=== PATIENT | male | born 1945 | race Caucasian/White ===

== ENCOUNTER 2018-06-04 21:02 | Emergency (ER) | payer MEDICARE, OTHER ==
[2018-06-05 00:27] LABS: ADD MAN DIFF? NO
[2018-06-05 00:45] LABS: PARTIAL THROMBOPLASTIN TIME 37.8 Sec (25.0-35.0)
[2018-06-05 00:46] LABS: INR 1.02; PROTIME 13.5 Sec (11.9-14.9); PT RATIO 1.1
[2018-06-05 00:49] LABS: ALANINE AMINOTRANSFERASE 30 IU/L (13-69); ALBUMIN 4.1 g/dl (3.3-4.9); ALBUMIN/GLOBULIN RATIO 1.32; ALKALINE PHOSPHATASE 69 IU/L (42-121); ANION GAP 14 (8-16); ASPARTATE AMINO TRANSFERASE 20 IU/L (15-46); BASOPHIL # 0.1 10^3/ul (0.0-0.1); BASOPHILS % 0.9 % (0.0-2.0); BILIRUBIN,INDIRECT 0.5 mg/dl (0-1.1); BILIRUBIN,TOTAL 0.5 mg/dl (0.2-1.3); BLOOD UREA NITROGEN 23 mg/dl (7-20); CALCIUM 9.2 mg/dl (8.4-10.2); CARBON DIOXIDE 34 mmol/L (21-31); CHLORIDE 101 mmol/L (97-110); CREATININE 1.28 mg/dl (0.61-1.24); EOSINOPHILS # 0.3 10^3/ul (0.0-0.5); EOSINOPHILS % 4.4 % (0.0-7.0); GLUCOSE 104 mg/dl (70-220); HEMATOCRIT 46.1 % (42.0-52.0); HEMOGLOBIN 14.7 g/dl (14.0-18.0); LYMPHOCYTES # 1.7 10^3/ul (0.8-2.9); LYMPHOCYTES % 22.2 % (15.0-51.0); MEAN CORPUSCULAR HEMOGLOBIN 28.4 pg (29.0-33.0); MEAN CORPUSCULAR HGB CONC 31.9 g/dl (32.0-37.0); MEAN CORPUSCULAR VOLUME 89.2 fl (82.0-101.0); MEAN PLATELET VOLUME 10.6 fl (7.4-10.4); MONOCYTE # 0.7 10^3/ul (0.3-0.9); MONOCYTES % 9.7 % (0.0-11.0); NEUTROPHIL # 4.6 10^3/ul (1.6-7.5); NEUTROPHILS % 62.3 % (39.0-77.0); PLATELET COUNT 231 10^3/UL (140-415); RED BLOOD COUNT 5.17 10^6/ul (4.70-6.10); RED CELL DISTRIBUTION WIDTH 12.9 % (11.5-14.5); SODIUM 145 mmol/L (135-144); TOTAL PROTEIN 7.2 g/dl (6.1-8.1)
[2018-06-05 00:49] LABS: WHITE BLOOD COUNT 7.4 10^3/ul (4.8-10.8)
[2018-06-05 01:00] LABS: B-TYPE NATRIURETIC PEPTIDE 492 PG/ML (0-125); TROPONIN-I 0.013 ng/ml (0.000-0.120)
[2018-06-05] MEDS: SOD CHLORIDE 0.9% 100 ML (01:33)
[2018-06-05] MEDS: IOHEXOL 300MG/ML 150 ML BTL (01:33)
[2018-06-05] MEDS: LABETALOL HCL 20MG INJ IV (06:05)
== END 2018-06-05 07:29 | disposition short-term general hospital (02) ==
LOC: E/R 06-05 07:29
DX: R06.00 Dyspnea, unspecified (principal)
CPT/HCPCS: 36415; 71045; 71275; 80053; 83880; 84484; 85025; 85610; 85730; 93005; 99285-25

== ENCOUNTER 2018-09-16 21:12 | Observation (INO) | payer MEDICARE, OTHER ==
[2018-09-16 21:56] LABS: ADD MAN DIFF? NO
[2018-09-16 22:04] LABS: WHITE BLOOD COUNT 6.7 10^3/ul (4.8-10.8)
[2018-09-16 22:04] LABS: BASOPHIL # 0.1 10^3/ul (0.0-0.1); BASOPHILS % 0.9 % (0.0-2.0); EOSINOPHILS # 0.3 10^3/ul (0.0-0.5); EOSINOPHILS % 5.1 % (0.0-7.0); HEMATOCRIT 45.1 % (42.0-52.0); HEMOGLOBIN 14.3 g/dl (14.0-18.0); LYMPHOCYTES # 1.6 10^3/ul (0.8-2.9); LYMPHOCYTES % 24.1 % (15.0-51.0); MEAN CORPUSCULAR HEMOGLOBIN 28.5 pg (29.0-33.0); MEAN CORPUSCULAR HGB CONC 31.7 g/dl (32.0-37.0); MEAN CORPUSCULAR VOLUME 89.8 fl (82.0-101.0); MEAN PLATELET VOLUME 10.4 fl (7.4-10.4); MONOCYTE # 0.6 10^3/ul (0.3-0.9); MONOCYTES % 8.3 % (0.0-11.0); NEUTROPHIL # 4.1 10^3/ul (1.6-7.5); NEUTROPHILS % 61.3 % (39.0-77.0); PLATELET COUNT 218 10^3/UL (140-415); RED BLOOD COUNT 5.02 10^6/ul (4.70-6.10); RED CELL DISTRIBUTION WIDTH 13.1 % (11.5-14.5)
[2018-09-16 22:27] LABS: ALANINE AMINOTRANSFERASE 23 IU/L (13-69); ALBUMIN 3.4 g/dl (3.3-4.9); ALBUMIN/GLOBULIN RATIO 0.97; ALKALINE PHOSPHATASE 74 IU/L (42-121); ASPARTATE AMINO TRANSFERASE 19 IU/L (15-46); BILIRUBIN,INDIRECT 0.4 mg/dl (0-1.1); BILIRUBIN,TOTAL 0.4 mg/dl (0.2-1.3); BLOOD UREA NITROGEN 18 mg/dl (7-20); CALCIUM 8.8 mg/dl (8.4-10.2); CARBON DIOXIDE 34 mmol/L (21-31); CHLORIDE 102 mmol/L (97-110); CREATININE 1.33 mg/dl (0.61-1.24); GLUCOSE 123 mg/dl (70-220); POTASSIUM 3.8 mmol/L (3.5-5.1); SODIUM 141 mmol/L (135-144); TOTAL PROTEIN 6.9 g/dl (6.1-8.1)
[2018-09-16 22:39] LABS: TROPONIN-I < 0.012 ng/ml (0.000-0.120)
[2018-09-17] MEDS: IODIXANOL LOCM 50 ML BTL (00:07)
[2018-09-17] MEDS: SOD CHLORIDE 0.9% 100 ML (00:08)
[2018-09-17] MEDS: IODIXANOL LOCM 100 ML BTL (00:08)
[2018-09-17] MEDS: HYDROCODONE/APAP (5/325) TAB PO ×2 (01:01→20:53)
[2018-09-17] MEDS ORDERED: NACL 0.9% 3 ML SYG IV (03:00)
[2018-09-17] MEDS ORDERED: hydrALAzine 20 MG INJ IV (03:00)
[2018-09-17] MEDS ORDERED: DOCUSATE SODIUM 100 MG CAP PO (03:00)
[2018-09-17] MEDS ORDERED: ONDANSETRON 4 MG INJ IV (03:00)
[2018-09-17 05:57] LABS: CREATINE KINASE 51 IU/L (23-200)
[2018-09-17 06:09] LABS: CK INDEX 1.1; CK-MB 0.55 ng/ml (0.0-2.4); TROPONIN-I < 0.012 ng/ml (0.000-0.120)
[2018-09-17] MEDS: PANTOPRAZOLE (EC) 40 MG TAB PO (06:31)
[2018-09-17] MEDS: FUROSEMIDE 40 MG TAB PO (06:31)
[2018-09-17] MEDS: HEPARIN 5,000 UNIT/0.5 ML VIAL SC (06:48)
[2018-09-17] MEDS ORDERED: NON-FORMULARY/PATIENT OWN MED (Clopidogrel Bisulfate* 75 MG) PO (09:00)
[2018-09-17] MEDS: ISOSORBIDE DINITRATE 10 MG TAB PO (09:04)
[2018-09-17] MEDS: LOSARTAN 50 MG TAB PO (09:04)
[2018-09-17] MEDS: CLOPIDOGREL 75 MG TAB PO (09:04)
[2018-09-17] MEDS: TAMSULOSIN (SR) 0.4 MG CAP PO ×2 (09:04→21:44)
[2018-09-17] MEDS: POTASSIUM CHLORIDE (SR) 10 MEQ TAB PO (09:04)
[2018-09-17] MEDS: METOPROLOL 50 MG TAB PO ×2 (09:04→21:00)
[2018-09-17 10:15] LABS: ANION GAP 5 (5-13)
[2018-09-17 10:52] LABS: CREATINE KINASE 40 IU/L (23-200)
[2018-09-17 11:03] LABS: CK-MB 0.38 ng/ml (0.0-2.4); TROPONIN-I < 0.012 ng/ml (0.000-0.120)
[2018-09-17] MEDS ORDERED: HEPARIN 5,000 UNIT/0.5 ML VIAL ×2 (13:25→21:26)
[2018-09-17] MEDS: ISOSORBIDE DINITRATE 20 MG TAB PO ×2 (13:29→21:44)
[2018-09-17] MEDS: HEPARIN SODIUM 5,000 UNIT/ML VIAL SC ×2 (13:32→21:50)
[2018-09-17] MEDS: AZITHROMYCIN 250 MG TAB PO (14:57)
[2018-09-17] MEDS ORDERED: NON-FORMULARY/PATIENT OWN MED (Rosuvastatin Calcium* (Crestor*) 10 MG) PO (21:00)
[2018-09-17] MEDS: ATORVASTATIN 40 MG TAB PO (21:44)
[2018-09-18] MEDS: ACETAMINOPHEN 325 MG TAB PO (00:27)
[2018-09-18] MEDS ORDERED: HEPARIN 5,000 UNIT/0.5 ML VIAL (06:32)
[2018-09-18] MEDS: PANTOPRAZOLE (EC) 40 MG TAB PO (06:36)
[2018-09-18] MEDS: PROMETHAZINE/CODEINE 5ML CUP PO (06:37)
[2018-09-18] MEDS: FUROSEMIDE 40 MG TAB PO (06:38)
[2018-09-18] MEDS: HEPARIN SODIUM 5,000 UNIT/ML VIAL SC (06:45)
[2018-09-18] MEDS: CLOPIDOGREL 75 MG TAB PO (09:21)
[2018-09-18] MEDS: POTASSIUM CHLORIDE (SR) 10 MEQ TAB PO (09:22)
[2018-09-18] MEDS: ISOSORBIDE DINITRATE 20 MG TAB PO (09:22)
[2018-09-18] MEDS: LOSARTAN 50 MG TAB PO (09:22)
[2018-09-18] MEDS: TAMSULOSIN (SR) 0.4 MG CAP PO (09:22)
== END 2018-09-18 12:37 | disposition home health service (06) ==
LOC: E/R 21:12 → 6WM 09-17 02:55
DX: I10 Essential (primary) hypertension (principal); R06.00 Dyspnea, unspecified; I25.10 Atherosclerotic heart disease of native coronary artery without angina pectoris; E78.5 Hyperlipidemia, unspecified; N40.0 Benign prostatic hyperplasia without lower urinary tract symptoms; J44.9 Chronic obstructive pulmonary disease, unspecified; Z95.1 Presence of aortocoronary bypass graft; Z85.118 Personal history of other malignant neoplasm of bronchus and lung
CPT/HCPCS: 36415; 71045; 71275; 80053; 82550; 82553; 84484; 85025; 90686; 93005; 99285-25; G0378

== ENCOUNTER 2019-03-02 07:00 | Day surgery (SDC) | payer MEDICARE, OTHER ==
[2019-03-02] MEDS: SOD CHLORIDE 0.9% 1,000 ML IV (07:38)
[2019-03-02] MEDS: MOXIFLOXACIN 0.5% 3 ML OPH RIGHT EYE (07:38)
[2019-03-02] MEDS: CYCLOPENTOLATE/PHENYLEPH 2 ML OPH RIGHT EYE (07:38)
[2019-03-02] MEDS: TROPICAMIDE 1% 15 ML OPH RIGHT EYE (07:39)
[2019-03-02] MEDS: DICLOFENAC 0.1% 2.5 ML OPH RIGHT EYE (07:39)
[2019-03-02] MEDS ORDERED: hydrALAzine 20 MG INJ ×2 (08:00→08:55)
[2019-03-02] MEDS: hydrALAzine 20 MG INJ IV (08:06)
[2019-03-02] MEDS ORDERED: FENTAnyl 50 MCG/ML VIAL IV (08:30)
[2019-03-02] MEDS ORDERED: DIPHENHYDRAMINE 50 MG INJ IV (08:30)
[2019-03-02] MEDS ORDERED: HYDROmorphONE 1 MG/5 ML IV SYRINGE IV ×2 (08:30)
[2019-03-02] MEDS ORDERED: OXYCODONE/ACETAMINOPHEN (5/325) TAB PO (08:30)
[2019-03-02] MEDS ORDERED: LABETALOL HCL 20MG INJ IV (08:30)
[2019-03-02] MEDS ORDERED: ONDANSETRON 4 MG INJ IV (08:30)
[2019-03-02] MEDS ORDERED: hydrALAzine 20 MG INJ IV (08:30)
[2019-03-02] MEDS ORDERED: FENTAnyl 50 MCG/ML VIAL (08:38)
[2019-03-02] MEDS ORDERED: MIDAZOLAM 1 MG/ML 2 ML INJ (08:38)
[2019-03-02] MEDS ORDERED: PROPOFOL 20 ML (08:55)
[2019-03-02] MEDS: CARBACHOL 0.01% 1.5 ML OPH INJ (09:02)
[2019-03-02] MEDS: DEXAMETHASONE 4 MG/ML 1 ML INJ (09:02)
[2019-03-02] MEDS: GENTAMICIN 80 MG INJ (09:02)
[2019-03-02] MEDS ORDERED: LIDOCAINE 4% (MPF) 5 ML INJ (09:33)
[2019-03-02] MEDS ORDERED: NA HYALURONATE/CHONDROITIN 0.5 ML SYG (09:33)
== END 2019-03-02 11:10 | disposition home or self-care (01) ==
LOC: SDS 07:00
DX: H25.041 Posterior subcapsular polar age-related cataract, right eye (principal); I11.0 Hypertensive heart disease with heart failure; I50.9 Heart failure, unspecified; I25.10 Atherosclerotic heart disease of native coronary artery without angina pectoris; J44.9 Chronic obstructive pulmonary disease, unspecified
CPT/HCPCS: 66984

== ENCOUNTER 2019-05-29 21:37 | Inpatient (IN) | payer MEDICARE, OTHER ==
[2019-05-29 22:03] LABS: AADO2 Arterial 47.5 mmHg (7.0-24.0); Allen Test ACCEPTAB; Arterial Base Excess 5.1 mmol/L (-3.0-3); Arterial Blood Gas Oxygen Sat 92.3 mmHG (95.0-100.0); Arterial COHb 1.3 % (0.0-3.0); Arterial Fraction of Oxyhgb 90.8 % (93.0-99.0); Arterial HCO3 33.4 mmol/L (22.0-26.0); Arterial MetHb 0.3 % (0.0-1.5); Arterial pCO2 65.4 mmhg (35-45); MODE NASAL CANNULA; Site Right Radial
[2019-05-29 22:13] LABS: ADD MAN DIFF? NO
[2019-05-29 22:15] LABS: WHITE BLOOD COUNT 10.9 10^3/ul (4.8-10.8)
[2019-05-29 22:15] LABS: BASOPHIL # 0.1 10^3/ul (0.0-0.1); BASOPHILS % 0.5 % (0.0-2.0); EOSINOPHILS # 0.2 10^3/ul (0.0-0.5); EOSINOPHILS % 1.7 % (0.0-7.0); HEMATOCRIT 46.8 % (42.0-52.0); HEMOGLOBIN 14.2 g/dl (14.0-18.0); LYMPHOCYTES # 1.9 10^3/ul (0.8-2.9); LYMPHOCYTES % 17.1 % (15.0-51.0); MEAN CORPUSCULAR HEMOGLOBIN 27.8 pg (29.0-33.0); MEAN CORPUSCULAR HGB CONC 30.3 g/dl (32.0-37.0); MEAN CORPUSCULAR VOLUME 91.6 fl (82.0-101.0); MEAN PLATELET VOLUME 10.9 fl (7.4-10.4); MONOCYTE # 0.9 10^3/ul (0.3-0.9); MONOCYTES % 7.8 % (0.0-11.0); NEUTROPHIL # 7.9 10^3/ul (1.6-7.5); NEUTROPHILS % 72.6 % (39.0-77.0); PLATELET COUNT 239 10^3/UL (140-415); RED BLOOD COUNT 5.11 10^6/ul (4.70-6.10); RED CELL DISTRIBUTION WIDTH 13.8 % (11.5-14.5)
[2019-05-29] MEDS: SODIUM CHLORIDE 0.9% 1L BAG IV* (22:17)
[2019-05-29] MEDS: CEFTRIAXONE 1 GM/50 ML (PMX) 50 ML IVPB (22:17)
[2019-05-29 22:22] LABS: INR 1.04; PROTIME 13.7 Sec (11.9-14.9); PT RATIO 1.1
[2019-05-29 22:23] LABS: ALANINE AMINOTRANSFERASE 45 IU/L (13-69); ALBUMIN 3.8 g/dl (3.3-4.9); ALBUMIN/GLOBULIN RATIO 1.08; ALKALINE PHOSPHATASE 76 IU/L (42-121); ANION GAP 7 (5-13); ASPARTATE AMINO TRANSFERASE 39 IU/L (15-46); BILIRUBIN,INDIRECT 0.6 mg/dl (0-1.1); BILIRUBIN,TOTAL 0.6 mg/dl (0.2-1.3); BLOOD UREA NITROGEN 27 mg/dl (7-20); CALCIUM 8.1 mg/dl (8.4-10.2); CARBON DIOXIDE 36 mmol/L (21-31); CHLORIDE 99 mmol/L (97-110); CREATININE 1.46 mg/dl (0.61-1.24); GLUCOSE 118 mg/dl (70-220); PARTIAL THROMBOPLASTIN TIME 39.9 Sec (23.0-35.0); POTASSIUM 4.1 mmol/L (3.5-5.1); SODIUM 142 mmol/L (135-144); TOTAL PROTEIN 7.3 g/dl (6.1-8.1)
[2019-05-29 22:37] LABS: TROPONIN-I 0.649 ng/ml (0.000-0.120)
[2019-05-29] MEDS: AZITHROMYCIN 500MG/NS (PMX) 250 ML IV (22:40)
[2019-05-29] MEDS: ASPIRIN 81 MG TAB PO (22:42)
[2019-05-29] MEDS: HYDROCODONE/APAP (10/325) TAB PO (23:04)
[2019-05-29] MEDS: ALBUTEROL 0.083% (NEB) 2.5 MG/3 ML AMP NEB (23:07)
[2019-05-29] MEDS: IPRATROPIUM (NEB) 0.5 MG/2.5 ML AMP NEB (23:07)
[2019-05-29] MEDS ORDERED: morphine 2 MG INJ IV (23:30)
[2019-05-29 23:45] LABS: B-TYPE NATRIURETIC PEPTIDE 2870 PG/ML (0-125)
[2019-05-30] MEDS ORDERED: ONDANSETRON 4 MG INJ IV
[2019-05-30 00:26] LABS: LACTIC ACID 0.7 mmol/L (0.5-2.0)
[2019-05-30] MEDS: ACETAMINOPHEN 325 MG TAB PO ×4 (00:29→21:51)
[2019-05-30] MEDS: ALBUTEROL/IPRATROPIUM (NEB) 3 ML AMP HHN ×6 (01:54→21:21)
[2019-05-30] MEDS: ZOLPIDEM 5 MG TAB PO (02:19)
[2019-05-30 03:05] LABS: LACTIC ACID 1.4 mmol/L (0.5-2.0)
[2019-05-30 04:57] LABS: TROPONIN-I 0.586 ng/ml (0.000-0.120)
[2019-05-30] MEDS: LEVOFLOXACIN 500MG/D5W (PMX) 100 ML IVPB (05:31)
[2019-05-30] MEDS: AMLODIPINE 10 MG TAB PO (10:04)
[2019-05-30] MEDS: ISOSORBIDE DINITRATE 10 MG TAB PO ×3 (10:04→20:06)
[2019-05-30] MEDS: TAMSULOSIN (SR) 0.4 MG CAP PO ×2 (10:04→20:05)
[2019-05-30] MEDS: CLOPIDOGREL 75 MG TAB PO (10:04)
[2019-05-30 13:55] LABS: TROPONIN-I 0.463 ng/ml (0.000-0.120)
[2019-05-30 14:50] LABS: PROCALCITONIN 0.09 ng/mL (0.00-0.10)
[2019-05-31] MEDS ORDERED: VANCOMYCIN IV PER PHARMACY XX
[2019-05-31] MEDS: VANCOMYCIN HCL 2 GM in SOD CHLORIDE 0.9% 500 ML IVPB (00:58)
[2019-05-31] MEDS: ALBUTEROL/IPRATROPIUM (NEB) 3 ML AMP HHN ×6 (01:45→20:27)
[2019-05-31] MEDS: ZOLPIDEM 5 MG TAB PO (02:20)
[2019-05-31] MEDS: ACETAMINOPHEN 325 MG TAB PO (02:20)
[2019-05-31] MEDS: LEVOFLOXACIN 500MG/D5W (PMX) 100 ML IVPB (06:25)
[2019-05-31 06:35] LABS: ADD MAN DIFF? NO
[2019-05-31 06:48] LABS: BASOPHIL # 0.1 10^3/ul (0.0-0.1); BASOPHILS % 0.7 % (0.0-2.0); EOSINOPHILS # 0.2 10^3/ul (0.0-0.5); EOSINOPHILS % 2.4 % (0.0-7.0); HEMOGLOBIN 12.2 g/dl (14.0-18.0); LYMPHOCYTES # 1.2 10^3/ul (0.8-2.9); LYMPHOCYTES % 16.5 % (15.0-51.0); MEAN CORPUSCULAR HEMOGLOBIN 27.9 pg (29.0-33.0); MEAN CORPUSCULAR HGB CONC 29.8 g/dl (32.0-37.0); MEAN CORPUSCULAR VOLUME 93.8 fl (82.0-101.0); MEAN PLATELET VOLUME 10.9 fl (7.4-10.4); MONOCYTE # 0.8 10^3/ul (0.3-0.9); MONOCYTES % 11.1 % (0.0-11.0); NEUTROPHIL # 5.1 10^3/ul (1.6-7.5); NEUTROPHILS % 68.8 % (39.0-77.0); PLATELET COUNT 180 10^3/UL (140-415); RED BLOOD COUNT 4.37 10^6/ul (4.70-6.10); RED CELL DISTRIBUTION WIDTH 13.6 % (11.5-14.5)
[2019-05-31 06:48] LABS: WHITE BLOOD COUNT 7.4 10^3/ul (4.8-10.8)
[2019-05-31 07:19] LABS: CREATINE KINASE 31 IU/L (23-200)
[2019-05-31 07:32] LABS: CK INDEX 2.8; CK-MB 0.88 ng/ml (0.0-2.4)
[2019-05-31 07:43] LABS: TROPONIN-I 0.306 ng/ml (0.000-0.120)
[2019-05-31 08:10] LABS: ALANINE AMINOTRANSFERASE 56 IU/L (13-69); ALBUMIN 3.2 g/dl (3.3-4.9); ALBUMIN/GLOBULIN RATIO 1.03; ALKALINE PHOSPHATASE 66 IU/L (42-121); ANION GAP 5 (5-13); ASPARTATE AMINO TRANSFERASE 44 IU/L (15-46); BILIRUBIN,INDIRECT 0.5 mg/dl (0-1.1); BILIRUBIN,TOTAL 0.5 mg/dl (0.2-1.3); BLOOD UREA NITROGEN 25 mg/dl (7-20); CALCIUM 7.9 mg/dl (8.4-10.2); CARBON DIOXIDE 35 mmol/L (21-31); CHLORIDE 104 mmol/L (97-110); CHOLESTEROL 149 mg/dl (100-200); CREATININE 1.13 mg/dl (0.61-1.24); GLUCOSE 120 mg/dl (70-220); HDL CHOLESTEROL 37 mg/dl (31-75); LDL CHOLESTEROL,CALCULATED 96 mg/dl; MAGNESIUM 2.3 mg/dl (1.7-2.5); POTASSIUM 4.1 mmol/L (3.5-5.1); SODIUM 144 mmol/L (135-144); TOTAL PROTEIN 6.3 g/dl (6.1-8.1); TRIGLYCERIDES 82 mg/dl (0-149)
[2019-05-31 08:18] LABS: B-TYPE NATRIURETIC PEPTIDE 1530 PG/ML (0-125)
[2019-05-31] MEDS: ONDANSETRON 4 MG INJ IV (08:32)
[2019-05-31] MEDS: ISOSORBIDE DINITRATE 10 MG TAB PO ×3 (09:46→20:02)
[2019-05-31] MEDS: HYDROCODONE/APAP (10/325) TAB PO ×2 (09:46→18:39)
[2019-05-31] MEDS: METOPROLOL (XL) 25 MG TAB PO ×3 (09:48→21:00)
[2019-05-31] MEDS: AMLODIPINE 2.5 MG TAB PO (09:48)
[2019-05-31] MEDS: TAMSULOSIN (SR) 0.4 MG CAP PO ×2 (09:48→20:03)
[2019-05-31 10:02] LABS: THYROID STIMULATING HORMONE 0.736 MIU/L (0.465-4.680)
[2019-05-31 14:13] LABS: FREE T4 (FREE THYROXINE) 0.94 ng/dl (0.78-2.44)
[2019-05-31] MEDS: ATORVASTATIN 80 MG TAB PO (20:02)
[2019-05-31] MEDS ORDERED: NITROGLYCERIN (SL) 0.4 MG TAB SL (21:00)
[2019-05-31] MEDS: CLOPIDOGREL 75 MG TAB PO (21:15)
[2019-06-01] MEDS: VANCOMYCIN HCL 1.5 GM in SOD CHLORIDE 0.9% 250 ML IVPB (00:03)
[2019-06-01] MEDS: ZOLPIDEM 5 MG TAB PO ×2 (00:10→21:47)
[2019-06-01] MEDS: ALBUTEROL/IPRATROPIUM (NEB) 3 ML AMP HHN ×6 (01:00→20:32)
[2019-06-01] MEDS ORDERED: VANCOMYCIN HCL 1.25 GM in SOD CHLORIDE 0.9% 250 ML IVPB (01:00)
[2019-06-01] MEDS: ACETAMINOPHEN 325 MG TAB PO ×2 (05:17→21:29)
[2019-06-01] MEDS: LEVOFLOXACIN 500MG/D5W (PMX) 100 ML IVPB (05:17)
[2019-06-01] MEDS: TAMSULOSIN (SR) 0.4 MG CAP PO ×2 (08:36→20:14)
[2019-06-01] MEDS: ISOSORBIDE DINITRATE 10 MG TAB PO ×3 (08:36→20:17)
[2019-06-01] MEDS: METOPROLOL (XL) 25 MG TAB PO ×2 (08:37→20:14)
[2019-06-01] MEDS: HYDROCODONE/APAP (10/325) TAB PO (08:53)
[2019-06-01] MEDS ORDERED: CLOPIDOGREL 75 MG TAB PO (09:00)
[2019-06-01] MEDS: LORAZEPAM 2 MG INJ IV (13:21)
[2019-06-01] MEDS: ATORVASTATIN 80 MG TAB PO (20:13)
[2019-06-01] MEDS: ONDANSETRON 4 MG INJ IV (21:47)
[2019-06-02] MEDS: VANCOMYCIN HCL 1.5 GM in SOD CHLORIDE 0.9% 250 ML IVPB (00:26)
[2019-06-02] MEDS: ALBUTEROL/IPRATROPIUM (NEB) 3 ML AMP HHN ×6 (00:32→20:36)
[2019-06-02] MEDS: HYDROCODONE/APAP (10/325) TAB PO ×3 (01:02→20:20)
[2019-06-02] MEDS: LEVOFLOXACIN 750 MG TABLET PO (06:17)
[2019-06-02 06:38] LABS: CREATININE 0.99 mg/dl (0.61-1.24)
[2019-06-02 06:38] LABS: BLOOD UREA NITROGEN 17 mg/dl (7-20)
[2019-06-02] MEDS: TAMSULOSIN (SR) 0.4 MG CAP PO ×2 (08:30→20:18)
[2019-06-02] MEDS: METOPROLOL (XL) 25 MG TAB PO (08:31)
[2019-06-02] MEDS: ISOSORBIDE DINITRATE 10 MG TAB PO ×3 (08:31→20:19)
[2019-06-02] MEDS: ONDANSETRON 4 MG INJ IV (09:18)
[2019-06-02 12:50] LABS: AADO2 Arterial 37.6 mmHg (7.0-24.0); Allen Test ACCEPTAB; Arterial Base Excess 8.9 mmol/L (-3.0-3); Arterial Blood Gas Oxygen Sat 78.8 mmHG (95.0-100.0); Arterial Fraction of Oxyhgb 77.7 % (93.0-99.0); Arterial HCO3 35.7 mmol/L (22.0-26.0); Arterial MetHb 0.4 % (0.0-1.5); Arterial pCO2 58.9 mmhg (35-45); MODE ROOM AIR; Site Left Radial
[2019-06-02] MEDS: LORAZEPAM 2 MG INJ IV (13:56)
[2019-06-02] MEDS: CLOPIDOGREL 75 MG TAB PO (20:18)
[2019-06-02] MEDS: ATORVASTATIN 80 MG TAB PO (20:19)
[2019-06-02] MEDS: METOPROLOL (XL) 50 MG TAB PO (20:20)
[2019-06-03] MEDS: LORAZEPAM 2 MG INJ IV (00:22)
[2019-06-03] MEDS: ALBUTEROL/IPRATROPIUM (NEB) 3 ML AMP HHN ×4 (01:29→14:15)
[2019-06-03 01:35] LABS: VANCOMYCIN,TROUGH 7.9 ug/ml (10.0-20.0)
[2019-06-03] MEDS: VANCOMYCIN HCL 1.5 GM in SOD CHLORIDE 0.9% 250 ML IVPB (01:46)
[2019-06-03] MEDS: LEVOFLOXACIN 750 MG TABLET PO (05:38)
[2019-06-03] MEDS: HYDROCODONE/APAP (10/325) TAB PO ×2 (06:59→17:28)
[2019-06-03] MEDS: ONDANSETRON 4 MG INJ IV (07:32)
[2019-06-03] MEDS: METOPROLOL (XL) 50 MG TAB PO (08:22)
[2019-06-03] MEDS: TAMSULOSIN (SR) 0.4 MG CAP PO (08:22)
[2019-06-03] MEDS: ISOSORBIDE DINITRATE 10 MG TAB PO ×2 (08:22→13:12)
[2019-06-03] MEDS ORDERED: VANCOMYCIN HCL 1.25 GM in SOD CHLORIDE 0.9% 250 ML IVPB (13:00)
[2019-06-03] MEDS: VANCOMYCIN 1 GM 250 ML IVPB (14:38)
== END 2019-06-03 18:11 | disposition home health service (06) | DRG 280 ==
LOC: E/R 21:37 → TEL 23:34
PROC: 4A033R1 Measurement of Arterial Saturation, Peripheral, Percutaneous Approach (ICD-10-PCS; principal; 2019-05-29)
DX: I21.4 Non-ST elevation (NSTEMI) myocardial infarction (principal); J18.9 Pneumonia, unspecified organism; J96.01 Acute respiratory failure with hypoxia; J44.1 Chronic obstructive pulmonary disease with (acute) exacerbation; I13.0 Hypertensive heart and chronic kidney disease with heart failure and stage 1 through stage 4 chronic kidney disease, or unspecified chronic kidney disease; I50.9 Heart failure, unspecified; N40.0 Benign prostatic hyperplasia without lower urinary tract symptoms; N18.3 Chronic kidney disease, stage 3 (moderate); Z85.118 Personal history of other malignant neoplasm of bronchus and lung; Z92.3 Personal history of irradiation; Z88.0 Allergy status to penicillin; Z95.1 Presence of aortocoronary bypass graft; Z95.5 Presence of coronary angioplasty implant and graft; Z79.02 Long term (current) use of antithrombotics/antiplatelets; Z91.19 Patient's noncompliance with other medical treatment and regimen
CPT/HCPCS: 36415; 36600; 71045; 71250; 80053; 80061; 80202; 82550; 82553; 82565; 82803; 83605; 83735; 83880; 84145; 84439; 84443; 84484; 84520; 85025; 85610; 85730; 87040-91; 93005; 93306; 94640; 94664; 96374; 96375; 99285-25

== ENCOUNTER 2019-06-04 06:43 | Observation (INO) | payer MEDICARE, OTHER ==
[2019-06-04 07:03] LABS: ADD MAN DIFF? NO
[2019-06-04] MEDS: ASPIRIN 81 MG TAB PO (07:04)
[2019-06-04] MEDS: NITROGLYCERIN 2% 1 GM OINT PKT TD (07:04)
[2019-06-04] MEDS: FUROSEMIDE 40 MG INJ IV (07:04)
[2019-06-04 07:06] LABS: BASOPHIL # 0.1 10^3/ul (0.0-0.1); BASOPHILS % 0.6 % (0.0-2.0); EOSINOPHILS # 0.2 10^3/ul (0.0-0.5); EOSINOPHILS % 2.1 % (0.0-7.0); HEMATOCRIT 45.3 % (42.0-52.0); HEMOGLOBIN 13.9 g/dl (14.0-18.0); LYMPHOCYTES # 1.4 10^3/ul (0.8-2.9); LYMPHOCYTES % 12.8 % (15.0-51.0); MEAN CORPUSCULAR HEMOGLOBIN 28.3 pg (29.0-33.0); MEAN CORPUSCULAR HGB CONC 30.7 g/dl (32.0-37.0); MEAN CORPUSCULAR VOLUME 92.3 fl (82.0-101.0); MEAN PLATELET VOLUME 10.8 fl (7.4-10.4); MONOCYTE # 0.5 10^3/ul (0.3-0.9); MONOCYTES % 4.7 % (0.0-11.0); NEUTROPHIL # 8.4 10^3/ul (1.6-7.5); NEUTROPHILS % 79.5 % (39.0-77.0); PLATELET COUNT 235 10^3/UL (140-415); RED BLOOD COUNT 4.91 10^6/ul (4.70-6.10); RED CELL DISTRIBUTION WIDTH 13.4 % (11.5-14.5)
[2019-06-04 07:06] LABS: WHITE BLOOD COUNT 10.6 10^3/ul (4.8-10.8)
[2019-06-04 07:22] LABS: ALANINE AMINOTRANSFERASE 59 IU/L (13-69); ALBUMIN 3.9 g/dl (3.3-4.9); ALBUMIN/GLOBULIN RATIO 1.05; ALKALINE PHOSPHATASE 99 IU/L (42-121); ANION GAP 8 (5-13); ASPARTATE AMINO TRANSFERASE 74 IU/L (15-46); BILIRUBIN,INDIRECT 0.7 mg/dl (0-1.1); BILIRUBIN,TOTAL 0.7 mg/dl (0.2-1.3); BLOOD UREA NITROGEN 19 mg/dl (7-20); CALCIUM 8.8 mg/dl (8.4-10.2); CARBON DIOXIDE 38 mmol/L (21-31); CHLORIDE 96 mmol/L (97-110); CREATININE 1.03 mg/dl (0.61-1.24); GLUCOSE 164 mg/dl (70-220); POTASSIUM 4.9 mmol/L (3.5-5.1); SODIUM 142 mmol/L (135-144); TOTAL PROTEIN 7.6 g/dl (6.1-8.1)
[2019-06-04 07:24] LABS: INR 0.98; PROTIME 13.1 Sec (11.9-14.9)
[2019-06-04 07:25] LABS: PARTIAL THROMBOPLASTIN TIME 37.9 Sec (23.0-35.0)
[2019-06-04 07:34] LABS: B-TYPE NATRIURETIC PEPTIDE 2600 PG/ML (0-125); TROPONIN-I 0.098 ng/ml (0.000-0.120)
[2019-06-04] MEDS: IPRATROPIUM (NEB) 0.5 MG/2.5 ML AMP INH (07:50)
[2019-06-04] MEDS: ALBUTEROL 0.5% (NEB) 2.5 MG/0.5 ML AMP INH (07:50)
[2019-06-04 07:56] LABS: AADO2 Arterial 182.3 mmHg (7.0-24.0); Allen Test ACCEPTAB; Arterial Base Excess 5.8 mmol/L (-3.0-3); Arterial Blood Gas Oxygen Sat 99.8 mmHG (95.0-100.0); Arterial COHb 0.9 % (0.0-3.0); Arterial Fraction of Oxyhgb 98.5 % (93.0-99.0); Arterial HCO3 36.7 mmol/L (22.0-26.0); Arterial MetHb 0.4 % (0.0-1.5); Arterial pCO2 88.1 mmhg (35-45); Blood Gas PS 10; MODE MASK - BIPAP; Site Right Radial
[2019-06-04 10:39] LABS: AADO2 Arterial 30.6 mmHg (7.0-24.0); Allen Test ACCEPTAB; Arterial Base Excess 11.5 mmol/L (-3.0-3); Arterial Blood Gas Oxygen Sat 93.1 mmHG (95.0-100.0); Arterial COHb 0.8 % (0.0-3.0); Arterial Fraction of Oxyhgb 92.1 % (93.0-99.0); Arterial HCO3 41.5 mmol/L (22.0-26.0); Arterial MetHb 0.3 % (0.0-1.5); Arterial pCO2 82.7 mmhg (35-45); MODE NASAL CANNULA; Site Left Radial
[2019-06-04] MEDS ORDERED: METOPROLOL 50 MG TAB PO (12:30)
[2019-06-04] MEDS ORDERED: ACETAMINOPHEN 325 MG TAB PO (12:30)
[2019-06-04] MEDS ORDERED: ONDANSETRON 4 MG INJ IV (12:30)
[2019-06-04] MEDS ORDERED: AMLODIPINE 10 MG TAB PO (12:30)
[2019-06-04] MEDS ORDERED: FUROSEMIDE 40 MG INJ IV (13:00)
[2019-06-04] MEDS: ALBUTEROL/IPRATROPIUM (NEB) 3 ML AMP HHN ×2 (14:47→20:40)
[2019-06-04] MEDS: CLOPIDOGREL 75 MG TAB PO (15:10)
[2019-06-04] MEDS: TAMSULOSIN (SR) 0.4 MG CAP PO ×2 (15:10→20:47)
[2019-06-04] MEDS: LEVOFLOXACIN 750 MG TABLET PO (15:10)
[2019-06-04] MEDS: BUMETANIDE 3 MG in DEXTROSE 5% 18 ML IV (15:11)
[2019-06-04] MEDS: ISOSORBIDE DINITRATE 10 MG TAB PO ×2 (15:11→20:48)
[2019-06-04] MEDS: METOPROLOL (XL) 25 MG TAB PO ×2 (15:11→20:48)
[2019-06-04] MEDS: POTASSIUM CHLORIDE (SR) 8 MEQ CAP PO (15:11)
[2019-06-04] MEDS: HYDROCODONE/APAP (10/325) TAB PO (16:06)
[2019-06-04 16:09] LABS: CREATINE KINASE 239 IU/L (23-200)
[2019-06-04 16:22] LABS: CK-MB 2.36 ng/ml (0.0-2.4); TROPONIN-I 0.063 ng/ml (0.000-0.120)
[2019-06-04] MEDS: LORAZEPAM 1 MG TAB PO ×2 (16:32→22:03)
[2019-06-04] MEDS ORDERED: ALBUTEROL/IPRATROPIUM (NEB) 3 ML AMP HHN ×2 (17:00→20:00)
[2019-06-04] MEDS: ATORVASTATIN 40 MG TAB PO (20:47)
[2019-06-04] MEDS: ACETAMINOPHEN 325 MG TAB PO (20:48)
[2019-06-04] MEDS ORDERED: METOPROLOL (XL) 25 MG TAB PO (21:00)
[2019-06-04 23:03] LABS: CREATINE KINASE 167 IU/L (23-200)
[2019-06-04 23:16] LABS: CK INDEX 0.9; CK-MB 1.43 ng/ml (0.0-2.4); TROPONIN-I 0.086 ng/ml (0.000-0.120)
[2019-06-05] MEDS: ALBUTEROL/IPRATROPIUM (NEB) 3 ML AMP HHN ×6 (00:04→21:10)
[2019-06-05 00:49] LABS: AADO2 Arterial 69.9 mmHg (7.0-24.0); Allen Test ACCEPTAB; Arterial Base Excess 13.2 mmol/L (-3.0-3); Arterial Blood Gas Oxygen Sat 94.2 mmHG (95.0-100.0); Arterial COHb 1.2 % (0.0-3.0); Arterial Fraction of Oxyhgb 92.7 % (93.0-99.0); Arterial HCO3 38.8 mmol/L (22.0-26.0); Arterial MetHb 0.4 % (0.0-1.5); Arterial pCO2 52.4 mmhg (35-45); Blood Gas IEPAP 20/5; Blood Gas PS 15; MODE MASK - BIPAP; Site Right Radial
[2019-06-05] MEDS: BUMETANIDE 1 MG INJ IV ×2 (05:53→17:05)
[2019-06-05 06:32] LABS: ADD MAN DIFF? NO
[2019-06-05] MEDS: LORAZEPAM 1 MG TAB PO ×2 (06:33→20:40)
[2019-06-05 06:46] LABS: WHITE BLOOD COUNT 8.6 10^3/ul (4.8-10.8)
[2019-06-05 06:46] LABS: BASOPHILS % 0.5 % (0.0-2.0); EOSINOPHILS # 0.2 10^3/ul (0.0-0.5); EOSINOPHILS % 2.6 % (0.0-7.0); HEMATOCRIT 39.6 % (42.0-52.0); HEMOGLOBIN 12.3 g/dl (14.0-18.0); LYMPHOCYTES # 1.2 10^3/ul (0.8-2.9); LYMPHOCYTES % 13.5 % (15.0-51.0); MEAN CORPUSCULAR HEMOGLOBIN 27.6 pg (29.0-33.0); MEAN CORPUSCULAR HGB CONC 31.1 g/dl (32.0-37.0); MEAN CORPUSCULAR VOLUME 88.8 fl (82.0-101.0); MEAN PLATELET VOLUME 10.9 fl (7.4-10.4); MONOCYTE # 0.8 10^3/ul (0.3-0.9); MONOCYTES % 8.8 % (0.0-11.0); NEUTROPHIL # 6.3 10^3/ul (1.6-7.5); PLATELET COUNT 215 10^3/UL (140-415); RED BLOOD COUNT 4.46 10^6/ul (4.70-6.10); RED CELL DISTRIBUTION WIDTH 13.7 % (11.5-14.5)
[2019-06-05 07:17] LABS: ANION GAP 8 (5-13); BLOOD UREA NITROGEN 26 mg/dl (7-20); CALCIUM 8.4 mg/dl (8.4-10.2); CARBON DIOXIDE 39 mmol/L (21-31); CHLORIDE 93 mmol/L (97-110); GLUCOSE 103 mg/dl (70-220); POTASSIUM 3.6 mmol/L (3.5-5.1); SODIUM 140 mmol/L (135-144)
[2019-06-05] MEDS: TAMSULOSIN (SR) 0.4 MG CAP PO ×2 (08:36→20:40)
[2019-06-05] MEDS: ISOSORBIDE DINITRATE 10 MG TAB PO ×3 (08:36→20:41)
[2019-06-05] MEDS: CLOPIDOGREL 75 MG TAB PO (08:36)
[2019-06-05] MEDS: METOPROLOL (XL) 25 MG TAB PO ×2 (08:36→20:41)
[2019-06-05] MEDS: ASPIRIN 81 MG TAB PO (08:36)
[2019-06-05] MEDS: LACTULOSE 30ML CUP PO (10:41)
[2019-06-05] MEDS: HYDROCODONE/APAP (10/325) TAB PO ×2 (10:41→12:11)
[2019-06-05] MEDS: ONDANSETRON 4 MG INJ IV (10:41)
[2019-06-05] MEDS: ATORVASTATIN 40 MG TAB PO (20:40)
[2019-06-06] MEDS: ALBUTEROL/IPRATROPIUM (NEB) 3 ML AMP HHN ×4 (01:19→12:14)
[2019-06-06] MEDS: clonAZEPAM 0.5 MG TAB PO (04:24)
[2019-06-06] MEDS: BUMETANIDE 1 MG INJ IV (05:01)
[2019-06-06 06:41] LABS: BLOOD UREA NITROGEN 27 mg/dl (7-20); CALCIUM 8.2 mg/dl (8.4-10.2); CHLORIDE 92 mmol/L (97-110); CREATININE 1.21 mg/dl (0.61-1.24); GLUCOSE 102 mg/dl (70-220); POTASSIUM 3.6 mmol/L (3.5-5.1); SODIUM 143 mmol/L (135-144)
[2019-06-06 07:13] LABS: ANION GAP 11 (5-13)
[2019-06-06 07:44] LABS: CARBON DIOXIDE 40 mmol/L (21-31)
[2019-06-06] MEDS: LACTULOSE 30ML CUP PO (08:04)
[2019-06-06] MEDS: TAMSULOSIN (SR) 0.4 MG CAP PO (08:05)
[2019-06-06] MEDS: ASPIRIN 81 MG TAB PO (08:05)
[2019-06-06] MEDS: CLOPIDOGREL 75 MG TAB PO (08:05)
[2019-06-06] MEDS: NA PHOSPHATE/BIPHOS 133 ML ENEMA PR (08:30)
[2019-06-06] MEDS: ISOSORBIDE DINITRATE 10 MG TAB PO ×2 (09:30→13:54)
[2019-06-06] MEDS: METOPROLOL (XL) 25 MG TAB PO (09:30)
== END 2019-06-06 15:28 | disposition home or self-care (01) ==
LOC: 6WM 14:11 → E/R 06:43 → 6WM 12:22
DX: I11.0 Hypertensive heart disease with heart failure (principal); I50.41 Acute combined systolic (congestive) and diastolic (congestive) heart failure; J18.9 Pneumonia, unspecified organism; I25.10 Atherosclerotic heart disease of native coronary artery without angina pectoris; Z95.1 Presence of aortocoronary bypass graft; Z95.5 Presence of coronary angioplasty implant and graft; J44.9 Chronic obstructive pulmonary disease, unspecified; E78.5 Hyperlipidemia, unspecified; N40.0 Benign prostatic hyperplasia without lower urinary tract symptoms; F17.200 Nicotine dependence, unspecified, uncomplicated; Z85.118 Personal history of other malignant neoplasm of bronchus and lung; Z92.3 Personal history of irradiation
CPT/HCPCS: 36415; 36600; 71045; 80048; 80053; 82550; 82553; 82803; 83880; 84484; 85025; 85610; 85730; 93005; 94640; 94644; 94660; 94664; 96374; 99285-25; G0378

== ENCOUNTER 2019-06-09 13:18 | Emergency (ER) | payer MEDICARE, OTHER ==
[2019-06-09 13:51] LABS: ADD MAN DIFF? NO
[2019-06-09 13:53] LABS: BASOPHIL # 0.1 10^3/ul (0.0-0.1); BASOPHILS % 0.7 % (0.0-2.0); EOSINOPHILS # 0.4 10^3/ul (0.0-0.5); EOSINOPHILS % 4.5 % (0.0-7.0); HEMOGLOBIN 13.7 g/dl (14.0-18.0); LYMPHOCYTES # 1.5 10^3/ul (0.8-2.9); LYMPHOCYTES % 17.6 % (15.0-51.0); MEAN CORPUSCULAR HEMOGLOBIN 27.9 pg (29.0-33.0); MEAN CORPUSCULAR HGB CONC 31.1 g/dl (32.0-37.0); MEAN CORPUSCULAR VOLUME 89.6 fl (82.0-101.0); MEAN PLATELET VOLUME 10.5 fl (7.4-10.4); MONOCYTE # 0.6 10^3/ul (0.3-0.9); MONOCYTES % 7.6 % (0.0-11.0); NEUTROPHIL # 5.7 10^3/ul (1.6-7.5); PLATELET COUNT 304 10^3/UL (140-415); RED BLOOD COUNT 4.91 10^6/ul (4.70-6.10); RED CELL DISTRIBUTION WIDTH 13.4 % (11.5-14.5)
[2019-06-09 13:53] LABS: WHITE BLOOD COUNT 8.3 10^3/ul (4.8-10.8)
[2019-06-09 14:11] LABS: ADD UMIC NO; UR ASCORBIC ACID NEGATIVE (NEGATIVE); UR BILIRUBIN (Dip) NEGATIVE (NEGATIVE); UR BLOOD (Dip) NEGATIVE (NEGATIVE); UR CLARITY CLEAR (CLEAR); UR COLOR YELLOW (YELLOW); UR GLUCOSE (Dip) NEGATIVE (NEGATIVE); UR KETONES (Dip) NEGATIVE (NEGATIVE); UR LEUKOCYTE ESTERASE (Dip) NEGATIVE Leu/ul (NEGATIVE); UR NITRITE (Dip) NEGATIVE (NEGATIVE); UR SPECIFIC GRAVITY (Dip) 1.008 (1.003-1.030); UR TOTAL PROTEIN (Dip) NEGATIVE (NEGATIVE); UR UROBILINOGEN (Dip) NEGATIVE (NEGATIVE)
[2019-06-09 14:13] LABS: INR 1.05; PROTIME 13.8 Sec (11.9-14.9); PT RATIO 1.1
[2019-06-09 14:22] LABS: ALANINE AMINOTRANSFERASE 25 IU/L (13-69); ALBUMIN 3.9 g/dl (3.3-4.9); ALBUMIN/GLOBULIN RATIO 1.14; ALKALINE PHOSPHATASE 81 IU/L (42-121); ANION GAP 9 (5-13); ASPARTATE AMINO TRANSFERASE 21 IU/L (15-46); BILIRUBIN,INDIRECT 0.6 mg/dl (0-1.1); BILIRUBIN,TOTAL 0.6 mg/dl (0.2-1.3); BLOOD UREA NITROGEN 25 mg/dl (7-20); CALCIUM 8.6 mg/dl (8.4-10.2); CARBON DIOXIDE 33 mmol/L (21-31); CHLORIDE 101 mmol/L (97-110); CREATININE 1.17 mg/dl (0.61-1.24); GLUCOSE 146 mg/dl (70-220); POTASSIUM 3.6 mmol/L (3.5-5.1); SODIUM 143 mmol/L (135-144); TOTAL PROTEIN 7.3 g/dl (6.1-8.1)
[2019-06-09 14:28] LABS: B-TYPE NATRIURETIC PEPTIDE 787 PG/ML (0-125); TROPONIN-I < 0.012 ng/ml (0.000-0.120)
[2019-06-09] MEDS: FUROSEMIDE 40 MG INJ IV (15:50)
== END 2019-06-09 17:12 | disposition home or self-care (01) ==
LOC: E/R 13:18
DX: I50.9 Heart failure, unspecified (principal); D64.9 Anemia, unspecified; E87.3 Alkalosis; R33.9 Retention of urine, unspecified; J44.9 Chronic obstructive pulmonary disease, unspecified; I10 Essential (primary) hypertension; I25.10 Atherosclerotic heart disease of native coronary artery without angina pectoris; Z85.118 Personal history of other malignant neoplasm of bronchus and lung; Z79.82 Long term (current) use of aspirin
CPT/HCPCS: 36415; 71045; 80053; 81003; 83880; 84484; 85025; 85610; 93005; 96374; 99284-25

== ENCOUNTER 2019-07-02 12:44 | Emergency (ER) | payer MEDICARE, OTHER ==
[2019-07-02] MEDS: IPRATROPIUM (NEB) 0.5 MG/2.5 ML AMP INH (13:43)
[2019-07-02] MEDS: ALBUTEROL 0.083% (NEB) 2.5 MG/3 ML AMP INH (13:43)
[2019-07-02] MEDS: CEFTRIAXONE 1 GM/50 ML (PMX) 50 ML IVPB (13:58)
[2019-07-02] MEDS: DEXAMETHASONE 10 MG/ML 1 ML INJ IV (13:58)
[2019-07-02 14:01] LABS: ADD MAN DIFF? NO
[2019-07-02 14:02] LABS: BASOPHILS % 0.5 % (0.0-2.0); EOSINOPHILS % 0.5 % (0.0-7.0); HEMOGLOBIN 13.5 g/dl (14.0-18.0); LYMPHOCYTES % 15.7 % (15.0-51.0); MEAN CORPUSCULAR HEMOGLOBIN 27.4 pg (29.0-33.0); MEAN CORPUSCULAR HGB CONC 30.7 g/dl (32.0-37.0); MEAN CORPUSCULAR VOLUME 89.4 fl (82.0-101.0); MEAN PLATELET VOLUME 10.2 fl (7.4-10.4); MONOCYTE # 0.2 10^3/ul (0.3-0.9); MONOCYTES % 3.1 % (0.0-11.0); NEUTROPHIL # 4.9 10^3/ul (1.6-7.5); NEUTROPHILS % 79.7 % (39.0-77.0); PLATELET COUNT 190 10^3/UL (140-415); RED BLOOD COUNT 4.92 10^6/ul (4.70-6.10); RED CELL DISTRIBUTION WIDTH 13.2 % (11.5-14.5)
[2019-07-02 14:02] LABS: WHITE BLOOD COUNT 6.2 10^3/ul (4.8-10.8)
[2019-07-02 14:19] LABS: ANION GAP 8 (5-13); BLOOD UREA NITROGEN 15 mg/dl (7-20); CALCIUM 8.3 mg/dl (8.4-10.2); CARBON DIOXIDE 32 mmol/L (21-31); CHLORIDE 101 mmol/L (97-110); CREATININE 0.98 mg/dl (0.61-1.24); GLUCOSE 196 mg/dl (70-220); SODIUM 141 mmol/L (135-144)
[2019-07-02] MEDS: AZITHROMYCIN 500MG/NS (PMX) 250 ML IV (14:29)
[2019-07-02] MEDS: SOD CHLORIDE 0.9% 1,000 ML IV (15:10)
== END 2019-07-02 18:25 | disposition home or self-care (01) ==
LOC: E/R 12:44
DX: J44.9 Chronic obstructive pulmonary disease, unspecified (principal); J18.1 Lobar pneumonia, unspecified organism; I50.9 Heart failure, unspecified; I25.10 Atherosclerotic heart disease of native coronary artery without angina pectoris; I11.0 Hypertensive heart disease with heart failure; Z79.82 Long term (current) use of aspirin; Z85.118 Personal history of other malignant neoplasm of bronchus and lung; Z95.1 Presence of aortocoronary bypass graft; Z98.61 Coronary angioplasty status
CPT/HCPCS: 71045; 80048; 85025; 87040-91; 94664; 96361; 96365; 96367; 96375; 99284-25

== ENCOUNTER 2019-07-31 09:53 | Inpatient (IN) | payer MEDICARE, OTHER ==
[2019-07-31 10:15] LABS: ADD MAN DIFF? NO
[2019-07-31 10:17] LABS: WHITE BLOOD COUNT 10.4 10^3/ul (4.8-10.8)
[2019-07-31 10:17] LABS: BASOPHIL # 0.1 10^3/ul (0.0-0.1); BASOPHILS % 0.7 % (0.0-2.0); EOSINOPHILS # 0.3 10^3/ul (0.0-0.5); EOSINOPHILS % 2.5 % (0.0-7.0); HEMATOCRIT 48.7 % (42.0-52.0); HEMOGLOBIN 14.3 g/dl (14.0-18.0); LYMPHOCYTES # 1.7 10^3/ul (0.8-2.9); MEAN CORPUSCULAR HEMOGLOBIN 27.8 pg (29.0-33.0); MEAN CORPUSCULAR HGB CONC 29.4 g/dl (32.0-37.0); MEAN CORPUSCULAR VOLUME 94.7 fl (82.0-101.0); MEAN PLATELET VOLUME 10.3 fl (7.4-10.4); MONOCYTE # 0.8 10^3/ul (0.3-0.9); MONOCYTES % 7.9 % (0.0-11.0); NEUTROPHIL # 7.5 10^3/ul (1.6-7.5); NEUTROPHILS % 72.3 % (39.0-77.0); PLATELET COUNT 223 10^3/UL (140-415); RED BLOOD COUNT 5.14 10^6/ul (4.70-6.10); RED CELL DISTRIBUTION WIDTH 13.8 % (11.5-14.5)
[2019-07-31 10:27] LABS: AADO2 Venous 94.2 mmHg; Allen Test ACCEPTAB; Blood Gas IEPAP 15/5; MODE MASK - BIPAP; MetHgb Venous 0.4 %; Sample Type Blood venous; Site OTHER; Venous COHb 1.1 %; Venous Fraction OxyHgb 78.7 %; Venous Oxygen Sat 79.9 mmHG (55.0-75.0); Venous Total Hemglobin 15.5 g/dl
[2019-07-31 10:36] LABS: ALANINE AMINOTRANSFERASE 48 IU/L (13-69); ALBUMIN/GLOBULIN RATIO 1.17; ALKALINE PHOSPHATASE 81 IU/L (42-121); ANION GAP 6 (5-13); ASPARTATE AMINO TRANSFERASE 30 IU/L (15-46); BILIRUBIN,INDIRECT 0.5 mg/dl (0-1.1); BILIRUBIN,TOTAL 0.5 mg/dl (0.2-1.3); BLOOD UREA NITROGEN 16 mg/dl (7-20); CALCIUM 8.3 mg/dl (8.4-10.2); CARBON DIOXIDE 36 mmol/L (21-31); CHLORIDE 97 mmol/L (97-110); CREATININE 0.96 mg/dl (0.61-1.24); GLUCOSE 126 mg/dl (70-220); POTASSIUM 4.6 mmol/L (3.5-5.1); SODIUM 139 mmol/L (135-144); TOTAL PROTEIN 7.4 g/dl (6.1-8.1)
[2019-07-31] MEDS: ALBUTEROL 0.5% (NEB) 2.5 MG/0.5 ML AMP INH (10:43)
[2019-07-31 10:48] LABS: B-TYPE NATRIURETIC PEPTIDE 1320 PG/ML (0-125)
[2019-07-31] MEDS: ASPIRIN 325 MG TAB PO (11:02)
[2019-07-31] MEDS: DEXAMETHASONE 10 MG/ML 1 ML INJ IV (11:02)
[2019-07-31] MEDS: FUROSEMIDE 40 MG INJ IV (11:11)
[2019-07-31] MEDS: CEFTRIAXONE 1 GM/50 ML (PMX) 50 ML IVPB (11:11)
[2019-07-31] MEDS: ENOXAPARIN 100 MG/ML SYG SC (11:16)
[2019-07-31] MEDS ORDERED: ACETAMINOPHEN 325 MG TAB PO (11:30)
[2019-07-31] MEDS: AZITHROMYCIN 500 MG TAB PO (14:01)
[2019-07-31] MEDS ORDERED: MECLIZINE 25 MG TAB PO (15:00)
[2019-07-31] MEDS ORDERED: NACL 0.9% 3 ML SYG IV (15:00)
[2019-07-31] MEDS: POTASSIUM CHLORIDE (SR) 8 MEQ CAP PO ×2 (15:36→20:47)
[2019-07-31 15:52] LABS: TROPONIN-I 0.388 ng/ml (0.000-0.120)
[2019-07-31 16:28] LABS: ERYTHROCYTE SEDIMENTATION RATE 11 mm/Hr (0-20)
[2019-07-31] MEDS: ASPIRIN 81 MG TAB PO (16:40)
[2019-07-31] MEDS: ENOXAPARIN 40 MG/0.4 ML SYG SC (16:40)
[2019-07-31] MEDS: FAMOTIDINE 20 MG INJ IV (16:40)
[2019-07-31] MEDS: CLOPIDOGREL 75 MG TAB PO (16:41)
[2019-07-31] MEDS: LOSARTAN 25 MG TAB PO ×2 (18:12→20:46)
[2019-07-31] MEDS: ISOSORBIDE MONONITRATE(SR)30 MG TAB PO ×2 (18:12→20:46)
[2019-07-31] MEDS: AMLODIPINE 10 MG TAB PO (18:13)
[2019-07-31] MEDS: ESCITALOPRAM 10 MG TAB PO (18:13)
[2019-07-31] MEDS: METOPROLOL (XL) 25 MG TAB PO ×2 (18:14→20:48)
[2019-07-31] MEDS: TAMSULOSIN (SR) 0.4 MG CAP PO ×2 (18:23→20:48)
[2019-07-31] MEDS: ALBUTEROL/IPRATROPIUM (NEB) 3 ML AMP HHN (20:22)
[2019-07-31] MEDS: ATORVASTATIN 80 MG TAB PO (20:47)
[2019-07-31] MEDS: HYDROCODONE/APAP (10/325) TAB PO (20:48)
[2019-07-31] MEDS ORDERED: TAMSULOSIN (SR) 0.4 MG CAP PO (21:00)
[2019-08-01 07:12] LABS: ANION GAP 4 (5-13); BLOOD UREA NITROGEN 32 mg/dl (7-20); CALCIUM 8.3 mg/dl (8.4-10.2); CARBON DIOXIDE 38 mmol/L (21-31); CHLORIDE 95 mmol/L (97-110); CREATININE 1.22 mg/dl (0.61-1.24); GLUCOSE 109 mg/dl (70-220); POTASSIUM 5.2 mmol/L (3.5-5.1); SODIUM 137 mmol/L (135-144)
[2019-08-01 07:18] LABS: MAGNESIUM 2.1 mg/dl (1.7-2.5)
[2019-08-01 07:32] LABS: TROPONIN-I 0.303 ng/ml (0.000-0.120)
[2019-08-01] MEDS: ALBUTEROL/IPRATROPIUM (NEB) 3 ML AMP HHN ×5 (08:05→20:25)
[2019-08-01] MEDS: ONDANSETRON 4 MG INJ IV (08:56)
[2019-08-01] MEDS: METOPROLOL (XL) 25 MG TAB PO ×2 (09:00→20:22)
[2019-08-01] MEDS: AMLODIPINE 10 MG TAB PO (09:00)
[2019-08-01] MEDS: AZITHROMYCIN 250 MG TAB PO (09:41)
[2019-08-01] MEDS: CLOPIDOGREL 75 MG TAB PO (09:42)
[2019-08-01] MEDS: ESCITALOPRAM 10 MG TAB PO (09:42)
[2019-08-01] MEDS: POTASSIUM CHLORIDE (SR) 8 MEQ CAP PO (09:43)
[2019-08-01] MEDS: LOSARTAN 25 MG TAB PO ×3 (09:43→21:00)
[2019-08-01] MEDS: FUROSEMIDE 40 MG INJ IV (09:44)
[2019-08-01] MEDS: ASPIRIN 81 MG TAB PO (09:44)
[2019-08-01] MEDS: ENOXAPARIN 40 MG/0.4 ML SYG SC (09:54)
[2019-08-01] MEDS: DOCUSATE SODIUM 100 MG CAP PO ×2 (11:32→20:18)
[2019-08-01] MEDS: ISOSORBIDE MONONITRATE(SR)30 MG TAB PO ×2 (12:42→20:18)
[2019-08-01] MEDS: FAMOTIDINE 20 MG TAB PO ×2 (14:09→20:19)
[2019-08-01] MEDS: HYDROCODONE/APAP (10/325) TAB PO (18:52)
[2019-08-01] MEDS: ATORVASTATIN 80 MG TAB PO (20:18)
[2019-08-01] MEDS: TAMSULOSIN (SR) 0.4 MG CAP PO (20:19)
[2019-08-02 06:20] LABS: D-DIMER 339.05 ng/ml (<460)
[2019-08-02] MEDS: ALBUTEROL/IPRATROPIUM (NEB) 3 ML AMP HHN ×4 (08:47→16:56)
[2019-08-02] MEDS: FAMOTIDINE 20 MG TAB PO ×2 (08:59→20:11)
[2019-08-02] MEDS: ASPIRIN 81 MG TAB PO (08:59)
[2019-08-02] MEDS: ISOSORBIDE MONONITRATE(SR)30 MG TAB PO ×2 (08:59→20:11)
[2019-08-02] MEDS: DOCUSATE SODIUM 100 MG CAP PO ×2 (08:59→20:11)
[2019-08-02] MEDS: AZITHROMYCIN 250 MG TAB PO (08:59)
[2019-08-02] MEDS: CLOPIDOGREL 75 MG TAB PO (08:59)
[2019-08-02] MEDS: TAMSULOSIN (SR) 0.4 MG CAP PO ×2 (09:00→20:12)
[2019-08-02] MEDS: AMLODIPINE 10 MG TAB PO (09:00)
[2019-08-02] MEDS: METOPROLOL (XL) 25 MG TAB PO ×2 (09:00→20:12)
[2019-08-02] MEDS: ESCITALOPRAM 10 MG TAB PO (09:00)
[2019-08-02] MEDS: LOSARTAN 25 MG TAB PO ×2 (09:00→20:11)
[2019-08-02] MEDS: FUROSEMIDE 40 MG INJ IV (09:01)
[2019-08-02] MEDS: ENOXAPARIN 40 MG/0.4 ML SYG SC (09:15)
[2019-08-02 10:42] LABS: ANION GAP 5 (5-13); BLOOD UREA NITROGEN 37 mg/dl (7-20); CALCIUM 8.1 mg/dl (8.4-10.2); CHLORIDE 94 mmol/L (97-110); CREATININE 1.31 mg/dl (0.61-1.24); GLUCOSE 127 mg/dl (70-220); POTASSIUM 3.9 mmol/L (3.5-5.1); SODIUM 139 mmol/L (135-144)
[2019-08-02 10:55] LABS: CARBON DIOXIDE 40 mmol/L (21-31)
[2019-08-02 16:35] LABS: BLOOD UREA NITROGEN 35 mg/dl (7-20); CALCIUM 7.9 mg/dl (8.4-10.2); CHLORIDE 94 mmol/L (97-110); CREATININE 1.23 mg/dl (0.61-1.24); GLUCOSE 89 mg/dl (70-220); POTASSIUM 3.9 mmol/L (3.5-5.1); SODIUM 139 mmol/L (135-144)
[2019-08-02 16:46] LABS: ANION GAP 7 (5-13); CARBON DIOXIDE 38 mmol/L (21-31)
[2019-08-02] MEDS: ATORVASTATIN 80 MG TAB PO (20:11)
[2019-08-02] MEDS: HYDROCODONE/APAP (10/325) TAB PO (23:27)
[2019-08-03 05:27] LABS: ADD MAN DIFF? NO
[2019-08-03 05:30] LABS: BASOPHIL # 0.1 10^3/ul (0.0-0.1); BASOPHILS % 1.1 % (0.0-2.0); EOSINOPHILS # 0.3 10^3/ul (0.0-0.5); EOSINOPHILS % 3.8 % (0.0-7.0); HEMATOCRIT 41.5 % (42.0-52.0); HEMOGLOBIN 12.1 g/dl (14.0-18.0); LYMPHOCYTES # 1.5 10^3/ul (0.8-2.9); MEAN CORPUSCULAR HEMOGLOBIN 27.1 pg (29.0-33.0); MEAN CORPUSCULAR HGB CONC 29.2 g/dl (32.0-37.0); MEAN CORPUSCULAR VOLUME 92.8 fl (82.0-101.0); MEAN PLATELET VOLUME 10.5 fl (7.4-10.4); MONOCYTE # 0.6 10^3/ul (0.3-0.9); MONOCYTES % 9.5 % (0.0-11.0); NEUTROPHIL # 4.2 10^3/ul (1.6-7.5); NEUTROPHILS % 62.3 % (39.0-77.0); PLATELET COUNT 226 10^3/UL (140-415); RED BLOOD COUNT 4.47 10^6/ul (4.70-6.10); RED CELL DISTRIBUTION WIDTH 14.4 % (11.5-14.5)
[2019-08-03 05:30] LABS: WHITE BLOOD COUNT 6.7 10^3/ul (4.8-10.8)
[2019-08-03] MEDS: ESCITALOPRAM 10 MG TAB PO (09:03)
[2019-08-03] MEDS: LOSARTAN 25 MG TAB PO (09:03)
[2019-08-03] MEDS: FAMOTIDINE 20 MG TAB PO (09:03)
[2019-08-03] MEDS: BUMETANIDE 1 MG TAB PO (09:03)
[2019-08-03] MEDS: ISOSORBIDE MONONITRATE(SR)30 MG TAB PO (09:03)
[2019-08-03] MEDS: AZITHROMYCIN 250 MG TAB PO (09:04)
[2019-08-03] MEDS: AMLODIPINE 10 MG TAB PO (09:04)
[2019-08-03] MEDS: ASPIRIN 81 MG TAB PO (09:04)
[2019-08-03] MEDS: DOCUSATE SODIUM 100 MG CAP PO (09:04)
[2019-08-03] MEDS: METOPROLOL (XL) 25 MG TAB PO (09:04)
[2019-08-03] MEDS: TAMSULOSIN (SR) 0.4 MG CAP PO (09:04)
[2019-08-03] MEDS: CLOPIDOGREL 75 MG TAB PO (09:04)
[2019-08-03] MEDS: ENOXAPARIN 40 MG/0.4 ML SYG SC (09:12)
== END 2019-08-03 20:16 | disposition home health service (06) | DRG 280 ==
LOC: E/R 09:53 → 6WM 11:27
PROC: 5A09357 Assistance with Respiratory Ventilation, Less than 24 Consecutive Hours, Continuous Positive Airway Pressure (ICD-10-PCS; principal; 2019-07-31)
DX: I11.0 Hypertensive heart disease with heart failure (principal); J96.02 Acute respiratory failure with hypercapnia; I21.4 Non-ST elevation (NSTEMI) myocardial infarction; J96.01 Acute respiratory failure with hypoxia; J44.1 Chronic obstructive pulmonary disease with (acute) exacerbation; M84.48XA Pathological fracture, other site, initial encounter for fracture; J44.9 Chronic obstructive pulmonary disease, unspecified; E87.5 Hyperkalemia; Z95.1 Presence of aortocoronary bypass graft; I25.10 Atherosclerotic heart disease of native coronary artery without angina pectoris; I50.43 Acute on chronic combined systolic (congestive) and diastolic (congestive) heart failure; E78.5 Hyperlipidemia, unspecified; N40.0 Benign prostatic hyperplasia without lower urinary tract symptoms; F32.9 Major depressive disorder, single episode, unspecified; Z79.82 Long term (current) use of aspirin; Z79.02 Long term (current) use of antithrombotics/antiplatelets; Z91.14 Patient's other noncompliance with medication regimen; Z87.891 Personal history of nicotine dependence; Z95.0 Presence of cardiac pacemaker; Z95.5 Presence of coronary angioplasty implant and graft; Z85.118 Personal history of other malignant neoplasm of bronchus and lung
CPT/HCPCS: 36415; 71045; 71046; 71100; 80048; 80053; 82803; 83735; 83880; 84484; 85025; 85378; 85651; 93005; 93970; 94640; 94660; 94664; 96372; 96374; 96375; 99285-25